=== PATIENT | male | born 1950 | race Caucasian/White ===

== ENCOUNTER 2018-06-21 18:22 | Inpatient (IN) | payer MEDICARE, BC ==
[2018-06-21] MEDS ORDERED: ASPIRIN 81 MG PO STA (18:42)
[2018-06-21] MEDS ORDERED: NITROGLYCERIN SL TABS 0.4 MG TAB SUBLINGUAL STA ×4 (18:42→20:24)
--- NOTE | 2018-06-21 18:47 | ED ---
General Adult HPI - General Chief complaint: Chest Pain Stated complaint: Chest pain Time Seen by Provider: 06/21/18 18:34 Source: patient, RN notes reviewed Mode of arrival: wheelchair Limitations: no limitations - History of Present Illness Initial comments: Patient is a pleasant 68-year-old male presenting to the emergency department with chest heaviness. Onset of symptoms was around 45 minutes ago. Patient was at rest. Patient earlier had done some painting and moving of boxes. Patient states discomfort started back and moved to his chest. Discomfort is described as a heaviness. There is some radiation towards left arm. No associated dyspnea or nausea. Patient was sweaty earlier. Discomfort is 8 or 9 /10. Discomfort in the back is slightly less. No history of similar symptoms previously. No leg pain or leg swelling. - Related Data Home Medications Medication Instructions Recorded Confirmed Curcumin 1 tab PO DAILY 06/21/18 06/21/18 Cyanocobalamin (Vitamin B-12) 1,000 mcg PO DAILY 06/21/18 06/21/18 [Vitamin B-12] Lisinopril [Zestril] 2.5 mg PO DAILY 06/21/18 06/21/18 Ubidecarenone [Co Q-10] 100 mg PO DAILY 06/21/18 06/21/18 Vitamin E 1,000 unit PO DAILY 06/21/18 06/21/18 metFORMIN HCL [Glucophage] 1,000 mg PO BID 06/21/18 06/21/18 Allergies Allergy/AdvReac Type Severity Reaction Status Date / Time glimepiride Allergy Unknown Verified 06/21/18 19:20 Review of Systems ROS Statement: Those systems with pertinent positive or pertinent negative responses have been documented in the HPI. ROS Other: All systems not noted in ROS Statement are negative. Constitutional: Denies: fever Eyes: Denies: eye pain ENT: Denies: ear pain Respiratory: Denies: cough, dyspnea Cardiovascular: Reports: chest pain. Denies: palpitations Endocrine: Denies: fatigue Gastrointestinal: Denies: abdominal pain, nausea Genitourinary: Denies: dysuria Musculoskeletal: Reports: back pain (Upper mid back) Skin: Denies: rash Neurological: Denies: weakness Past Medical History Past Medical History: Diabetes Mellitus History of Any Multi-Drug Resistant Organisms: None Reported Past Surgical History: No Surgical Hx Reported Past Psychological History: No Psychological Hx Reported Smoking Status: Never smoker Past Alcohol Use History: Daily Past Drug Use History: None Reported General Exam Limitations: no limitations General appearance: alert, in no apparent distress Head exam: Present: atraumatic Eye exam: Present: normal appearance, PERRL ENT exam: Present: normal oropharynx Neck exam: Present: normal inspection Respiratory exam: Present: normal lung sounds bilaterally. Absent: chest wall tenderness Cardiovascular Exam: Present: regular rate, normal rhythm, normal heart sounds Expanded Peripheral pulses: 2+: Radial (R), Radial (L), Dorsalis Pedis (R), Dorsalis Pedis (L) GI/Abdominal exam: Present: soft. Absent: tenderness Extremities exam: Present: normal inspection. Absent: pedal edema, calf tenderness Back exam: Present: normal inspection. Absent: tenderness Neurological exam: Present: alert. Absent: motor sensory deficit Psychiatric exam: Present: normal affect, normal mood Skin exam: Present: normal color Course Vital Signs 06/21/18 06/21/18 06/21/18 18:24 18:39 18:40 Temperature 97.5 F L Pulse Rate 70 71 68 Respiratory 18 12 10 L Rate Blood Pressure 127/77 122/81 O2 Sat by Pulse 100 97 Oximetry 06/21/18 06/21/18 06/21/18 19:00 19:20 19:40 Temperature Pulse Rate 74 63 Respiratory 12 4 L Rate Blood Pressure 122/81 122/81 122/81 O2 Sat by Pulse 94 L 93 L Oximetry 06/21/18 06/21/18 06/21/18 20:00 20:15 20:20 Temperature Pulse Rate 64 63 Respiratory 6 L 18 13 Rate Blood Pressure 122/81 108/68 108/68 O2 Sat by Pulse 98 98 98 Oximetry 06/21/18 06/21/18 06/21/18 20:35 20:40 21:00 Temperature Pulse Rate 74 69 65 Respiratory 18 14 16 Rate Blood Pressure 103/61 103/61 98/64 O2 Sat by Pulse 95 Oximetry 06/21/18 21:20 Temperature Pulse Rate 104 H Respiratory 16 Rate Blood Pressure 96/61 O2 Sat by Pulse 96 Oximetry EKG Findings - EKG Comments: EKG Findings:: Normal sinus rhythm 68. IA 172. QRS 92. QT 378. QTC 411. Normal axis. Normal QRS. No acute ST change. Medical Decision Making - Medical Decision Making Patient reevaluated and resting comfortably in bed. Discomfort is mild at this time. Patient and family updated on results and plan. Case was discussed in detail with Dr. Santillan, who will admit for hospital call. - Lab Data Result diagrams: 06/21/18 18:41 06/21/18 18:41 Lab Results 06/21/18 06/21/18 06/21/18 Range/Units 18:41 18:41 18:41 WBC 7.9 (3.8-10.6) k/uL RBC 5.21 (4.30-5.90) m/uL Hgb 15.5 (13.0-17.5) gm/dL Hct 46.7 (39.0-53.0) % MCV 89.8 (80.0-100.0) fL MCH 29.8 (25.0-35.0) pg MCHC 33.2 (31.0-37.0) g/dL RDW 12.7 (11.5-15.5) % Plt Count 308 (150-450) k/uL Neutrophils % 64 % Lymphocytes % 23 % Monocytes % 8 % Eosinophils % 2 % Basophils % 1 % Neutrophils # 5.0 (1.3-7.7) k/uL Lymphocytes # 1.8 (1.0-4.8) k/uL Monocytes # 0.6 (0-1.0) k/uL Eosinophils # 0.2 (0-0.7) k/uL Basophils # 0.1 (0-0.2) k/uL PT (9.0-12.0) sec INR (<1.2) APTT (22.0-30.0) sec Sodium 135 L (137-145) mmol/L Potassium 4.2 (3.5-5.1) mmol/L Chloride 106 (98-107) mmol/L Carbon Dioxide 21 L (22-30) mmol/L Anion Gap 8 mmol/L BUN 16 (9-20) mg/dL Creatinine 0.89 (0.66-1.25) mg/dL Est GFR (CKD-EPI)AfAm >90 (>60 ml/min/1.73 sqM) Est GFR (CKD-EPI)NonAf 88 (>60 ml/min/1.73 sqM) Glucose 145 H (74-99) mg/dL Calcium 9.9 (8.4-10.2) mg/dL Magnesium 1.8 (1.6-2.3) mg/dL Total Bilirubin 0.7 (0.2-1.3) mg/dL AST 25 (17-59) U/L ALT 32 (21-72) U/L Alkaline Phosphatase 58 (38-126) U/L Total Creatine Kinase 70 (55-170) U/L CK-MB (CK-2) 1.2 (0.0-2.4) ng/mL CK-MB (CK-2) Rel Index 1.7 Troponin I <0.012 (0.000-0.034) ng/mL Total Protein 7.1 (6.3-8.2) g/dL Albumin 4.1 (3.5-5.0) g/dL 06/21/18 Range/Units 18:41 WBC (3.8-10.6) k/uL RBC (4.30-5.90) m/uL Hgb (13.0-17.5) gm/dL Hct (39.0-53.0) % MCV (80.0-100.0) fL MCH (25.0-35.0) pg MCHC (31.0-37.0) g/dL RDW (11.5-15.5) % Plt Count (150-450) k/uL Neutrophils % % Lymphocytes % % Monocytes % % Eosinophils % % Basophils % % Neutrophils # (1.3-7.7) k/uL Lymphocytes # (1.0-4.8) k/uL Monocytes # (0-1.0) k/uL Eosinophils # (0-0.7) k/uL Basophils # (0-0.2) k/uL PT 10.7 (9.0-12.0) sec INR 1.1 (<1.2) APTT 22.6 (22.0-30.0) sec Sodium (137-145) mmol/L Potassium (3.5-5.1) mmol/L Chloride (98-107) mmol/L Carbon Dioxide (22-30) mmol/L Anion Gap mmol/L BUN (9-20) mg/dL Creatinine (0.66-1.25) mg/dL Est GFR (CKD-EPI)AfAm (>60 ml/min/1.73 sqM) Est GFR (CKD-EPI)NonAf (>60 ml/min/1.73 sqM) Glucose (74-99) mg/dL Calcium (8.4-10.2) mg/dL Magnesium (1.6-2.3) mg/dL Total Bilirubin (0.2-1.3) mg/dL AST (17-59) U/L ALT (21-72) U/L Alkaline Phosphatase (38-126) U/L Total Creatine Kinase (55-170) U/L CK-MB (CK-2) (0.0-2.4) ng/mL CK-MB (CK-2) Rel Index Troponin I (0.000-0.034) ng/mL Total Protein (6.3-8.2) g/dL Albumin (3.5-5.0) g/dL - Radiology Data Radiology results: report reviewed (Computed tomography scan of the chest shows no evidence of pulmonary embolism. There is borderline aneurysm at the aortic root, 4.1 cm.) Disposition Clinical Impression: Chest pain Disposition: ADMITTED IP TO THIS HOSP Is patient prescribed a controlled substance at d/c from ED?: No Referrals: Nonstaff,Physician [REFERRING] - 1-2 days Decision Time: 21:49
[2018-06-21 19:02] LABS: Basophils # (A) 0.1 k/uL (0-0.2); Basophils % (A) 1 %; Eosinophils # (A) 0.2 k/uL (0-0.7); Eosinophils % (A) 2 %; HCT 46.7 % (39.0-53.0); HGB 15.5 gm/dL (13.0-17.5); Lymphocytes # (A) 1.8 k/uL (1.0-4.8); Lymphocytes % (A) 23 %; MCH 29.8 pg (25.0-35.0); MCHC 33.2 g/dL (31.0-37.0); MCV 89.8 fL (80.0-100.0); Mean Platelet Volume 6.3; Monocytes # (A) 0.6 k/uL (0-1.0); Monocytes % (A) 8 %; Neutrophils % (A) 64 %; Platelet Count 308 k/uL (150-450); RBC 5.21 m/uL (4.30-5.90); RDW 12.7 % (11.5-15.5); WBC 7.9 k/uL (3.8-10.6)
[2018-06-21 19:09] LABS: INR 1.1 (<1.2); Partial Thromboplastin Time 22.6 sec (22.0-30.0); Prothrombin Time 10.7 sec (9.0-12.0)
[2018-06-21 19:16] LABS: ALT 32 U/L (21-72); AST 25 U/L (17-59); Albumin 4.1 g/dL (3.5-5.0); Alkaline Phosphatase 58 U/L (38-126); Anion Gap 8 mmol/L; Blood Urea Nitrogen 16 mg/dL (9-20); Calcium 9.9 mg/dL (8.4-10.2); Carbon Dioxide 21 mmol/L (22-30); Chloride 106 mmol/L (98-107); Glucose 145 mg/dL (74-99); Magnesium 1.8 mg/dL (1.6-2.3); Potassium 4.2 mmol/L (3.5-5.1); Sodium 135 mmol/L (137-145); Total Bilirubin 0.7 mg/dL (0.2-1.3); Total Protein 7.1 g/dL (6.3-8.2)
[2018-06-21 19:18] LABS: Creatine Kinase 70 U/L (55-170)
[2018-06-21 19:30] LABS: Creatine Kinase MB 1.2 ng/mL (0.0-2.4); Troponin I <0.012 ng/mL (0.000-0.034)
[2018-06-21] MEDS ORDERED: MORPHINE SULFATE 4 MG/ML SYRINGE IVP STA (20:25)
--- NOTE | 2018-06-21 20:26 | CT ---
EXAMINATION TYPE: CT angio chest DATE OF EXAM: 06/21/2018 COMPARISON: NONE HISTORY: Evaluate aorta, chest pain today CT DLP: 1338.4 mGycm. Automated Exposure Control for Dose Reduction was Utilized. CONTRAST: CTA scan of the thorax is performed without and with IV Contrast, patient injected with 100 mL of Iso mary 370, pulmonary embolism protocol. MIP Images are created on CT scanner and reviewed. FINDINGS: LUNGS: There is biapical pleural parenchymal scarring and mild paraseptal emphysematous change. Very mild focal pleural thickening is seen along the anterior lingula on image 200. No focal consolidation is seen. There is no pleural effusion or pneumothorax seen. The tracheobronchial tree is patent. MEDIASTINUM: There is a normal variant origin of the left vertebral artery directly from the aortic a rch. Aortic root is aneurysmal measuring 4.1 cm on coronal image 50. The ascending thoracic aorta how ever is within normal limits of size measuring 3.5 cm. Descending thoracic aorta is also within janeen l limits. There is satisfactory enhancement of the pulmonary artery and its branches, there is no CT evidence for pulmonary embolism. There are no greater than 1 cm hilar or mediastinal lymph nodes. No cardiomegaly or pericardial effusion is seen. OTHER: Large descending duodenal diverticulum is incidentally noted. Cholelithiasis is also seen. Low -attenuation of the liver suggests hepatic steatosis but is slightly limited and on the angiographic phase of contrast enhancement. Small hiatal hernia is present. Moderate multilevel degenerative gallegos es of the spine are seen as bridging anterior osteophytes. Diffuse idiopathic skeletal hyperostosis s hould also be considered. IMPRESSION: 1. No evidence of thoracic aortic dissection nor pulmonary embolism. 2. Mild aortic root aneurysm measuring 4.1 cm. 3. Small hiatal hernia. 4. Mild paraseptal emphysema.
[2018-06-21] MEDS ORDERED: CYCLOBENZAPRINE 10 MG TAB PO STA (21:44)
[2018-06-21] MEDS ORDERED: NITROGLYCERIN SL TABS 0.4 MG TAB SUBLINGUAL PRN (21:49)
[2018-06-22 01:34] VITALS: BMI 27.2
[2018-06-22] MEDS: NITROGLYCERIN OINT 1 INCH/GM PACKET TOPICAL SCH ×2 (02:09→04:35)
[2018-06-22 02:52] LABS: Creatine Kinase MB 1.7 ng/mL (0.0-2.4)
[2018-06-22 02:59] LABS: Troponin I 0.181 ng/mL (0.000-0.034)
[2018-06-22] MEDS ORDERED: HEPARIN SODIUM,PORCINE 5,000 UNIT/ML 1 ML VIAL IV PRN (04:21)
[2018-06-22] MEDS ORDERED: HEPARIN SODIUM,PORCINE 5,000 UNIT/ML 1 ML VIAL IV ONE (04:21)
[2018-06-22] MEDS ORDERED: HEPARIN SOD,PORK IN 0.45% NACL 25,000 UNIT in 0.45% NACL 1 500ML.BAG IV SCH (04:30)
[2018-06-22] MEDS: METOPROLOL TARTRATE 25 MG TAB PO SCH ×2 (04:35→20:06)
[2018-06-22] MEDS ORDERED: SODIUM CHLORIDE 0.9% 1,000 ML in EMPTY BAG 1 BAG IV ONE (05:54)
[2018-06-22] MEDS ORDERED: ALPRAZolam 0.25 MG TAB PO PRN (05:54)
[2018-06-22] MEDS ORDERED: ALPRAZolam 0.5 MG TAB PO PRN (05:54)
--- NOTE | 2018-06-22 06:02 | P.CRDCN ---
History of Present Illness Consult date: 06/22/18 History of present illness: This is a 68-year-old gentleman with history of diabetes, [id number] , and hypercholesterolemia who started having chest pain while doing painting around the house. The pain started in the back and immediately radiated to the chest with some radiation to the left arm. The pain was intense and was 8 on a scale of 1-10. Patient was seen in the emergency room and was treated with subcu lingual nitro and also morphine with relief of pain. His first EKG she showed normal findings and first troponin was normal. Computed tomography scan of the chest showed mild aortic aneurysm involving the Route without evidence of dissection. His second troponin is elevated. Patient is still having intermittent mild chest discomfort. Repeat EKG did not reveal any acute changes. Patient is advised to have a cardiac catheterization for definitive diagnosis and was explained the risks and benefits of the procedure which he fully understood and accepted. We'll going to continue him on nitrates, beta blockers, aspirin and Plavix along with lipid-lowering agent. He is scheduled to have an echocardiogram today. Cardiac catheterization will be done today. Review of Systems REVIEW OF SYSTEMS: CONSTITUTIONAL:. Patient is doing well. No complaints of fever or chills EYES: Denies diplopia, blurring of vision EARS, NOSE, MOUTH, THROAT: Denies headaches, denies sore throat. CARDIOVASCULAR: As per HPI RESPIRATORY: Denies shortness of breath, denies cough. GASTROINTESTINAL: Denies change in appetite, denies abdominal pain, denies diarrhea GENITOURINARY: Denies hematuria, denies infections. MUSKULOSKELETAL: Denies pain, denies swelling. Denies any cramps or claudication INTEGUMENTARY: Denies rash, denies eczema. NEUROLOGICAL: Denies focal weakness, or visual disturbance. Denies any dizziness or syncope PSYCHIATRIC: Denies anxiety, denies depression. HEMATOLOGIC/LYMPHATIC: Denies any bleeding, denies enlarged lymph nodes. Past Medical History Past Medical History: Diabetes Mellitus, GERD/Reflux, Sleep Apnea/CPAP/BIPAP Additional Past Medical History / Comment(s): no cpap, neuropathy History of Any Multi-Drug Resistant Organisms: None Reported Past Surgical History: No Surgical Hx Reported, Hernia Repair Additional Past Surgical History / Comment(s): 3 hernia repair - marshall inguinal, umbilical hernia repair Past Anesthesia/Blood Transfusion Reactions: No Reported Reaction Past Psychological History: No Psychological Hx Reported Smoking Status: Former smoker Past Alcohol Use History: Daily Past Drug Use History: None Reported - Past Family History Mother Family Medical History: CVA/TIA Additional Family Medical History / Comment(s): passed at 76 Father Additional Family Medical History / Comment(s): pt states healthy Medications and Allergies Home Medications Medication Instructions Recorded Confirmed Type Curcumin 1 tab PO DAILY 06/21/18 06/21/18 History Cyanocobalamin (Vitamin B-12) 1,000 mcg PO DAILY 06/21/18 06/21/18 History [Vitamin B-12] Lisinopril [Zestril] 2.5 mg PO DAILY 06/21/18 06/21/18 History Ubidecarenone [Co Q-10] 100 mg PO DAILY 06/21/18 06/21/18 History Vitamin E 1,000 unit PO DAILY 06/21/18 06/21/18 History metFORMIN HCL [Glucophage] 1,000 mg PO BID 06/21/18 06/21/18 History Allergies Allergy/AdvReac Type Severity Reaction Status Date / Time glimepiride Allergy Unknown Verified 06/21/18 19:20 Physical Exam Vitals: Vital Signs Temp Pulse Pulse Resp BP BP Pulse Ox 06/22/18 04:00 98.5 F 55 L 16 110/71 97 06/22/18 01:05 98.2 F 63 16 121/71 97 06/22/18 00:45 67 16 101/69 97 06/22/18 00:15 65 12 103/67 94 L 06/22/18 00:00 16 06/21/18 23:57 16 100/66 98 06/21/18 23:45 68 12 100/66 97 06/21/18 23:15 67 21 105/72 94 L 06/21/18 22:45 67 14 110/71 90 L 06/21/18 22:30 66 12 125/73 93 L 06/21/18 22:15 63 6 L 125/73 96 06/21/18 22:00 64 15 105/67 06/21/18 21:45 84 11 L 105/67 95 06/21/18 21:20 104 H 16 96/61 96 06/21/18 21:00 65 16 98/64 06/21/18 20:40 69 14 103/61 06/21/18 20:35 74 18 103/61 95 06/21/18 20:20 63 13 108/68 98 06/21/18 20:15 64 18 108/68 98 06/21/18 20:00 6 L 122/81 98 06/21/18 19:40 122/81 06/21/18 19:20 63 4 L 122/81 93 L 06/21/18 19:00 74 12 122/81 94 L 06/21/18 18:40 68 10 L 122/81 97 06/21/18 18:39 71 12 06/21/18 18:24 97.5 F L 70 18 127/77 100 Intake and Output 06/21/18 06/21/18 06/22/18 14:59 22:59 06:59 Other: # Voids 2 Weight 86.183 kg 86.183 kg GENERAL EXAM: Patient is alert and oriented and doesn't appear to be in any acute distress HEENT: Normocephalic. Normal reaction of pupils, equal size, normal range of extraocular motion. No erythema or exudates in the throat. NECK: No masses, no nuchal rigidity. CHEST: No chest wall deformity. LUNGS: Equal air entry with no crackles or wheeze. HEART: S1 and S2 normal with no audible mumurs or gallops. Regular rhythm, femorals equal on both sides.. ABDOMEN: No hepatosplenomegaly, normal bowel sounds, no guarding or rigidity. SKIN: No rashes CENTRAL NERVOUS SYSTEM: No focal deficits. EXTREMITIES: No cyanosis, clubbing or edema. Results 06/21/18 18:41 06/21/18 18:41 Cardiac Enzymes 06/21/18 06/21/18 06/22/18 Range/Units 18:41 18:41 01:19 AST 25 (17-59) U/L CK-MB (CK-2) 1.2 1.7 (0.0-2.4) ng/mL Troponin I <0.012 0.181 H* (0.000-0.034) ng/mL Coagulation 06/21/18 Range/Units 18:41 PT 10.7 (9.0-12.0) sec APTT 22.6 (22.0-30.0) sec CBC 06/21/18 Range/Units 18:41 WBC 7.9 (3.8-10.6) k/uL RBC 5.21 (4.30-5.90) m/uL Hgb 15.5 (13.0-17.5) gm/dL Hct 46.7 (39.0-53.0) % Plt Count 308 (150-450) k/uL Comprehensive Metabolic Panel 06/21/18 Range/Units 18:41 Sodium 135 L (137-145) mmol/L Potassium 4.2 (3.5-5.1) mmol/L Chloride 106 (98-107) mmol/L Carbon Dioxide 21 L (22-30) mmol/L BUN 16 (9-20) mg/dL Creatinine 0.89 (0.66-1.25) mg/dL Glucose 145 H (74-99) mg/dL Calcium 9.9 (8.4-10.2) mg/dL AST 25 (17-59) U/L ALT 32 (21-72) U/L Alkaline Phosphatase 58 (38-126) U/L Total Protein 7.1 (6.3-8.2) g/dL Albumin 4.1 (3.5-5.0) g/dL Current Medications Generic Name Dose Route Start Last Admin Trade Name Freq PRN Reason Stop Dose Admin Aspirin 325 mg 06/22/18 09:00 Aspirin PO DAILY [facility] Atorvastatin Calcium 80 mg 06/22/18 09:00 Lipitor PO DAILY [facility] Clopidogrel Bisulfate 75 mg 06/22/18 09:00 Plavix PO DAILY [facility] Heparin Sodium (Porcine) 0 unit 06/22/18 04:21 Heparin IV PER PROTOCOL PRN Low PTT Protocol Heparin Sodium/Sodium Chloride 500 mls @ 20 mls/hr 06/22/18 04:30 06/22/18 04 :47 25,000 unit/ Sodium Chloride IV 20 ml/hr .Q24H PARISH 20 mls/hr Administration Protocol Metoprolol Tartrate 25 mg 06/22/18 09:00 06/22/18 04:35 Lopressor PO 25 mg BID [facility] Administration Nitroglycerin 1 inch 06/22/18 00:00 06/22/18 04:35 Nitro-Bid Oint TOPICAL 1 inch Q6HR [facility] Administration Nitroglycerin 0.4 mg 06/21/18 21:49 Nitrostat SUBLINGUAL Q5M PRN Chest Pain Sodium Chloride 10 ml 06/22/18 09:00 Saline Flush IV BID [facility] Intake and Output 06/21/18 06/21/18 06/22/18 14:59 22:59 06:59 Other: # Voids 2 Weight 86.183 kg 86.183 kg Patient Weight 06/22/18 06:59 Weight 86.183 kg 06/21/18 18:41 06/21/18 18:41 EKG Interpretations (text) Sinus rhythm without acute changes Assessment and Plan (1) Non-STEMI (non-ST elevated myocardial infarction) Current Visit: Yes Status: Acute Code(s): I21.4 - NON-ST ELEVATION (NSTEMI) MYOCARDIAL INFARCTION SNOMED Code(s): 321889159 (2) Non-insulin dependent type 2 diabetes mellitus Current Visit: Yes Status: Acute Code(s): E11.9 - TYPE 2 DIABETES MELLITUS WITHOUT COMPLICATIONS SNOMED Code(s): 18165756 (3) Hypercholesterolemia Current Visit: Yes Status: Acute Code(s): E78.00 - PURE HYPERCHOLESTEROLEMIA , UNSPECIFIED SNOMED Code(s): 82264684 Plan: Continue with current management with IV heparin, nitrates, beta blockers and lipid-lowering agent along with aspirin and Plavix. Echocardiogram. We will proceed with cardiac catheterization. Further recommendations depend upon the findings
[2018-06-22] MEDS: ATORVASTATIN 80 MG TAB PO SCH (06:25)
[2018-06-22 07:17] LABS: Glucose,Whole Blood 132 mg/dL (75-99)
[2018-06-22] MEDS ORDERED: LIDOCAINE 1% INJ 10MG/ML (20 ML MDV) ONE (08:03)
[2018-06-22] MEDS ORDERED: IV FLUID CONTINUATION 800 ML IV ONE (08:12)
[2018-06-22 08:20] LABS: Creatine Kinase MB 3.3 ng/mL (0.0-2.4)
[2018-06-22] MEDS ORDERED: MIDAZOLAM 2 MG/2 ML VIAL ONE (08:20)
[2018-06-22] MEDS ORDERED: MIDAZOLAM 2 MG/2 ML VIAL IV ONE (08:24)
[2018-06-22] MEDS ORDERED: fentaNYL (PF) 50 MCG/ML 2 ML AMP ONE (08:26)
[2018-06-22] MEDS ORDERED: fentaNYL (PF) 50 MCG/ML 2 ML AMP IV ONE (08:27)
[2018-06-22] MEDS ORDERED: LIDOCAINE 1% INJ 10MG/ML (20 ML MDV) SQ ONE (08:28)
[2018-06-22 08:33] LABS: Troponin I 0.692 ng/mL (0.000-0.034)
[2018-06-22 08:34] LABS: Cholesterol 201 mg/dL (<200); HDL Cholesterol 54 mg/dL (40-60); LDL Cholesterol,Calculated 135 mg/dL (0-99); Triglycerides 59 mg/dL (<150)
[2018-06-22] MEDS ORDERED: BIVALIRUDIN 250 MG in SODIUM CHLORIDE 0.9% 50 ML IV ONE (09:00)
[2018-06-22] MEDS ORDERED: CLOPIDOGREL 75 MG TAB PO SCH (09:00)
[2018-06-22] MEDS ORDERED: BIVALIRUDIN BOLUS 250 MG/50 ML IV ONE (09:00)
[2018-06-22] MEDS ORDERED: ASPIRIN 325 MG TAB PO SCH (09:00)
[2018-06-22] MEDS ORDERED: TICAGRELOR 90 MG TAB ONE (09:01)
[2018-06-22] MEDS ORDERED: TICAGRELOR 90 MG TAB PO ONE (09:07)
[2018-06-22] MEDS ORDERED: IOPAMIDOL-370 125ML BTL INJ ONE (09:10)
[2018-06-22] MEDS ORDERED: IOPAMIDOL-370 100ML BTL INJ ONE (09:11)
--- NOTE | 2018-06-22 09:12 | P.CARDCATH ---
Date of Procedure: 06/22/18 Preoperative Diagnosis: Non-STEMI Postoperative Diagnosis: Critical lesion involving the OM branch of the circumflex, moderate disease in the distal RCA involving the PLV Procedure(s) Performed: Left heart catheterization with left ventriculography Description of Procedure: HISTORY: This is a 68-year-old gentleman with history of diabetes and mild hypercholesterolemia who was admitted to the hospital with chest pain and positive troponins. EKG did not reveal any significant changes. Because of positive troponins and chest pain suggestive of non-STEMI, patient is advised to have cardiac catheterization. CONSENT:I have discussed the risks, benefits and alternative therapies for the above-mentioned procedure and for both sedation/analgesia as well as necessary blood product administration, if indicated, as they pertain to this patient. The patient has indicated understanding and acceptance of the risks and procedures discussed. PROCEDURE: Patient was brought to the lab in a fasting state. Patient was given some IV sedation. The right groin is infiltrated with lidocaine and right femoral artery was entered using Seldinger technique. A 6-Palauan catheter was left in place and selective coronary arteriography and left ventriculography was performed. Patient tolerated the procedure well. Patient went on to have stent placement by Dr. Heller. No immediate complications were noted. Conscious Sedation: Versed 1mg Fentanyl 25 g Duration 22minutes HEMODYNAMICS: [] SELECTIVE CORONARY ARTERIOGRAPHY: LEFT MAIN: Normal length without any stenosis THE LEFT ANTERIOR DESCENDING CORONARY ARTERY:. Good caliber vessel giving rise to small septal and diagonal branches. No significant obstructive disease noted in the LAD and its branches THE LEFT CIRCUMFLEX AND IS CORONARY ARTERY:. This is a good caliber vessel giving rise good-sized OM branch. The OM branch has an area of about 40-50% stenosis followed by a significant stenosis which is seen only in one view. There is a small branch coming off that area THE RIGHT CORONARY ARTERY:. Good caliber vessel and dominant, giving rise to good-sized PDA and PLV. The PLV branch has about 50% stenosis involving the proximal portion LEFT VENTRICULOGRAPHY:. This revealed normal size cardiac silhouette with good systolic function. There is mild mitral regurgitation which is probably induced by catheter FINAL IMPRESSION: Critical lesion involving the OM branch and intermediate disease involving the PLV branch of the right with a mild plaque in the proximal RCA PLAN: Stent placement of the OM branch PROGNOSIS: Good
[2018-06-22] MEDS ORDERED: IOPAMIDOL-370 50ML BTL INJ ONE (09:13)
[2018-06-22] MEDS ORDERED: NITROGLYCERIN SL TABS 0.4 MG TAB SUBLINGUAL PRN (09:20)
[2018-06-22] MEDS ORDERED: ZOLPIDEM 5 MG TAB PO PRN (09:20)
[2018-06-22] MEDS ORDERED: ATROPINE SULFATE 0.1 MG/ML 10ML SYRINGE IV PRN (09:20)
[2018-06-22] MEDS ORDERED: MAG HYDROX/AL HYDROX/SIMETH 30 ML CUP PO PRN (09:20)
[2018-06-22] MEDS ORDERED: RX INFO: IV CONTRAST WAS GIVEN 1 EACH MISC MISCELLANE PRN (09:20)
[2018-06-22] MEDS ORDERED: SODIUM CHLORIDE 0.9% 1,000 ML IV SCH (09:30)
[2018-06-22 11:27] LABS: Glucose,Whole Blood 165 mg/dL (75-99)
--- NOTE | 2018-06-22 14:39 | HP ---
HISTORY AND PHYSICAL CHIEF COMPLAINT: A 68-year-old white male with history diabetes mellitus, hypercholesterolemia, came in with sharp chest pain radiating into his back. He is doing a lot of heaving lifting at home on his pole barn. Cardiac catheterization showed a stent in the RCA today. Medications discussed with the patient and long-term care and medications were discussed. 14 POINT REVIEW OF SYSTEMS: Negative except for as mentioned in HPI. PAST MEDICAL HISTORY: Diabetes mellitus, sleep apnea, GERD, no CPAP. He has neuropathy, he has a hernia repair, bilateral inguinal, umbilical hernia repair. SOCIAL HISTORY: Former smoker. Daily alcohol. Mother with CVA, TIA. Father is healthy. HOME MEDICATIONS: He takes Zestril 2.5 daily for kidney protection for diabetes. Metformin is 1000 b.i.d. and takes a bunch of vitamins. Temp 98.5, pulse 60s to 70s, respiratory 16 to 18, blood pressure 100/60s, O2 is 94% to 97% on room air. CARDIOVASCULAR: S1, S2. LUNGS: Clear. GI: Soft, nontender. HEMATOLOGY: Negative Homans. PSYCH: Fair mood and affect. MUSCULOSKELETAL: There is some tenderness to palpation around thoracic spinal muscles. SKIN: No rash, excoriation, bruises. Cranial nerves are intact. Sodium is 135, BUN is 16, creatinine is 0.89. White count is 7.9, hemoglobin 15.5. ASSESSMENT: 1. Non-STEMI. 2. [id number]-mocdshpyk diabetes mellitus. 3. Hypercholesterolemia. 4. Stents placed, medications were reviewed for him for long-term care. Follow up in the next 24-48 hours for discharge in the next 1-2 days, depending on Cardiology clearance. MMODL / IJN: [id number] /
--- NOTE | 2018-06-22 16:09 | PTCA ---
PERCUTANEOUSTRANS CORORONARY ANGIOGRAPHY Mr. Forbes is a 68-year-old male with known history of diabetes mellitus who presented with symptoms of chest discomfort and had mild elevation of troponin without any EKG changes. He underwent cardiac catheterization by Dr. Lott and was found to have significant obstructive disease involving the first OM branch. In view of that, recommendation was made regarding angioplasty and stenting. The procedure, its risks and complications were discussed with the patient, who was in full understanding and agreement. PROCEDURE: A 6-Chinese FR4 guiding catheter was introduced into the system. After cannulating the left main, a 0.014 balanced medium-weight J-wire was advanced across the lesion and positioned distally. Then a 2.5 x 12 mm Xience CR stent was deployed and post dilated at 16 atmospheres. After the last inflation, after appropriate wait, the balloon and the guidewire were withdrawn back into the guiding catheter. Images were obtained and repeated. Those images revealed stable successful stenting. At that point, the guiding catheter, the balloon and the guidewire were removed. The sheath was removed. Hemostasis was obtained with deployment of an Angio-Seal. There were no immediate complications. Patient was returned to his room in stable condition. Of note, patient received Angiomax per protocol as well as oral loading dose of Brilinta. RESULT: Successful stenting of the first obtuse marginal branch with reduction of stenosis from 95% to 0%. RECOMMENDATIONS: Patient will be continued on aspirin, Brilinta, beta roland, ANITHA inhibitor and statin. The importance of dual antiplatelet treatment was discussed with the patient and his family, who are in full understanding and agreement. Duration of procedure 17 minutes. MMODL / IJN: [id number] /
[2018-06-22 16:35] LABS: Glucose,Whole Blood 195 mg/dL (75-99)
[2018-06-22 20:31] LABS: Glucose,Whole Blood 126 mg/dL (75-99)
[2018-06-22] MEDS ORDERED: ATORVASTATIN 80 MG TAB PO SCH (21:00)
[2018-06-22 22:31] VITALS: RESP 16
[2018-06-23 04:35] VITALS: PULSE 62
[2018-06-23 06:02] LABS: Glucose,Whole Blood 103 mg/dL (75-99)
[2018-06-23 07:27] LABS: Basophils % (A) 1 %; Eosinophils # (A) 0.2 k/uL (0-0.7); Eosinophils % (A) 4 %; HCT 43.8 % (39.0-53.0); HGB 14.5 gm/dL (13.0-17.5); Lymphocytes # (A) 1.4 k/uL (1.0-4.8); Lymphocytes % (A) 25 %; MCH 30.4 pg (25.0-35.0); MCHC 33.1 g/dL (31.0-37.0); MCV 91.8 fL (80.0-100.0); Monocytes # (A) 0.4 k/uL (0-1.0); Monocytes % (A) 7 %; Neutrophils # (A) 3.3 k/uL (1.3-7.7); Neutrophils % (A) 60 %; Platelet Count 248 k/uL (150-450); RBC 4.77 m/uL (4.30-5.90); RDW 12.9 % (11.5-15.5); WBC 5.5 k/uL (3.8-10.6)
[2018-06-23] MEDS: ATORVASTATIN 80 MG TAB PO SCH (07:37)
[2018-06-23] MEDS: METOPROLOL TARTRATE 25 MG TAB PO SCH (07:37)
[2018-06-23 07:41] LABS: Anion Gap 5 mmol/L; Blood Urea Nitrogen 12 mg/dL (9-20); Calcium 8.9 mg/dL (8.4-10.2); Carbon Dioxide 24 mmol/L (22-30); Chloride 108 mmol/L (98-107); Glucose 97 mg/dL (74-99); Potassium 4.6 mmol/L (3.5-5.1); Sodium 137 mmol/L (137-145)
[2018-06-23 07:43] VITALS: BP 114/64; TEMP 97.3
[2018-06-23] MEDS ORDERED: LISINOPRIL 2.5 MG TAB PO SCH (09:00)
[2018-06-23] MEDS ORDERED: ASPIRIN 81 MG PO SCH (09:00)
[2018-06-23] MEDS ORDERED: TICAGRELOR 90 MG TAB PO SCH (09:00)
--- NOTE | 2018-06-23 10:04 | ECHOF ---
Referral Reason:Chest pain and cardiomyopathy MEASUREMENTS -------- HEIGHT: 177.8 cm WEIGHT: 86.2 kg BP: 110/71 RVIDd: 2.6 cm (< 3.3) IVSd: 1.0 cm (0.6 - 1.1) LVIDd: 4.6 cm (3.9 - 5.3) LVPWd: 1.1 cm (0.6 - 1.1) IVSs: 1.4 cm LVIDs: 2.3 cm LVPWs: 1.3 cm LAESV Index (A-L): 19.95 ml/m Ao Diam: 4.2 cm (2.0 - 3.7) AV Cusp: 2.3 cm (1.5 - 2.6) LA Diam: 2.2 cm (2.7 - 3.8) EPSS: 0.5 cm MV E Atul: 0.62 m/s MV DecT: 337 ms MV A Atul: 0.59 m/s MV E/A Ratio: 1.06 AV maxP.70 mmHg AV meanP.92 mmHg MV EF SLOPE: 175.17 mm/s (70 - 150) MV EXCURSION: 2.02 cm (> 18.000) FINDINGS -------- Sinus rhythm. This was a technically difficult study with suboptimal views. The left ventricular size is normal. Left ventricular wall thickness is normal. Overall left vent ricular systolic function is normal with, an EF between 55 - 60 %. The RV was not well visualized. Normal LA size by volume 22+/-6 ml/m2. The right atrium is normal in size. 3ml of Lumason was utilized for enhancement of images. Aortic valve is trileaflet and is mildly thickened. There is no evidence of aortic regurgitation. There is no evidence of aortic stenosis. Mild mitral annular calcification present. There is trace to mild mitral regurgitation. Trace tricuspid regurgitation present. Right ventricular systolic pressure is normal at < 35 mmHg. There is no evidence of pulmonary hypertension. The pulmonic valve was not well visualized. The aortic root is mildy dilated, up to 3.9 cm at the level of the annulus. IVC Not well visulized. There is no pericardial effusion. CONCLUSIONS -------- 1. Sinus rhythm. 2. This was a technically difficult study with suboptimal views. 3. The left ventricular size is normal. 4. Left ventricular wall thickness is normal. 5. Overall left ventricular systolic function is normal with, an EF between 55 - 60 %. 6. The RV was not well visualized. 7. Normal LA size by volume 22+/-6 ml/m2. 8. 3ml of Lumason was utilized for enhancement of images. 9. Aortic valve is trileaflet and is mildly thickened. 10. Mild mitral annular calcification present. 11. There is trace to mild mitral regurgitation. 12. Trace tricuspid regurgitation present. 13. Right ventricular systolic pressure is normal at < 35 mmHg. 14. There is no evidence of pulmonary hypertension. 15. The pulmonic valve was not well visualized. 16. The aortic root is mildy dilated, up to 3.9 cm at the level of the annulus. 17. IVC Not well visulized. 18. There is no pericardial effusion. SPRAY DYER: Alessandro Lara RDCS
--- NOTE | 2018-06-23 13:18 | P.PN ---
Subjective Progress Note Date: 06/23/18 This is a 68-year-old gentleman with history of diabetes, [id number] , and hypercholesterolemia who started having chest pain while doing painting around the house. The pain started in the back and immediately radiated to the chest with some radiation to the left arm. The pain was intense and was 8 on a scale of 1-10. Patient was seen in the emergency room and was treated with subcu lingual nitro and also morphine with relief of pain. His first EKG she showed normal findings and first troponin was normal. Computed tomography scan of the chest showed mild aortic aneurysm involving the Route without evidence of dissection. His second troponin is elevated. Patient is still having intermittent mild chest discomfort. Repeat EKG did not reveal any acute changes. Patient is advised to have a cardiac catheterization for definitive diagnosis and was explained the risks and benefits of the procedure which he fully understood and accepted. Subsequent to the cardiac catheterization patient underwent angioplasty and stenting of the first obtuse marginal branch. He was seen and examined this morning, denied any chest pain or difficulty in breathing. He's been up ambulating in the hallway without any difficulty. Hemodynamically stable. EKG shows normal sinus rhythm with no changes from post -PCI. Objective - Vital Signs Vital signs: Vital Signs Temp 97.3 F L 06/23/18 07:41 Pulse 62 06/23/18 07:41 Resp 16 06/23/18 07:41 BP 114/64 06/23/18 07:41 Pulse Ox 94 L 06/23/18 07:41 Intake & Output 06/22/18 06/23/18 06/23/18 18:59 06:59 18:59 Intake Total 859.52 500 240 Balance 859.52 500 240 Weight 86.183 kg Intake: IV 219.52 Intake, IV Titration 400 500 Amount Sodium Chloride 0.9% 1, 400 500 000 ml @ 100 mls/hr IV . Q10H [facility] Rx#:[id number] Oral 240 240 Other: # Voids 250 1 1 - Exam GENERAL EXAM: Patient is alert and oriented and doesn't appear to be in any acute distress HEENT: Normocephalic. Normal reaction of pupils, equal size, normal range of extraocular motion. No erythema or exudates in the throat. NECK: No masses, no nuchal rigidity. CHEST: No chest wall deformity. LUNGS: Equal air entry with no crackles or wheeze. HEART: S1 and S2 normal with no audible mumurs or gallops. Regular rhythm, femorals equal on both sides.. ABDOMEN: No hepatosplenomegaly, normal bowel sounds, no guarding or rigidity. SKIN: No rashes CENTRAL NERVOUS SYSTEM: No focal deficits. EXTREMITIES: No cyanosis, clubbing or edema. Right groin soft, no evidence of any hematoma. - Labs CBC & Chem 7: 06/23/18 06:16 06/23/18 06:16 Labs: Abnormal Lab Results - Last 24 Hours (Table) 06/22/18 06/22/18 06/23/18 Range/Units 16:33 20:24 06:00 Chloride (98-107) mmol/L POC Glucose (mg/dL) 195 H 126 H 103 H (75-99) mg/dL 06/23/18 Range/Units 06:16 Chloride 108 H (98-107) mmol/L POC Glucose (mg/dL) (75-99) mg/dL Assessment and Plan Plan: Assessment and plan #1 status post stent placement of the first obtuse marginal branch #2 diabetes #3 hyperlipidemia Plan Patient will be discharged home today. We will make a follow-up appointment to see Dr. Lott in the office post discharge. He has been educated regarding his medication, diet, activity, and care of groin. DNP note has been reviewed, I agree with a documented findings and plan of care. Patient was seen and examined.
== END 2018-06-23 10:55 | disposition home or self-care (01) | DRG 247 ==
LOC: EC 18:22 → 1SOBS 21:49 → 3SCARD 06-22 10:07 → OBSVTOIN 06-22 13:53
PROVIDERS: ADMIT Family Medicine; ATTEND Family Medicine
PROC: B2111ZZ Fluoroscopy of Multiple Coronary Arteries using Low Osmolar Contrast (ICD-10-PCS; 2018-06-22)
PROC: B2151ZZ Fluoroscopy of Left Heart using Low Osmolar Contrast (ICD-10-PCS; 2018-06-22)
PROC: 027034Z Dilation of Coronary Artery, One Artery with Drug-eluting Intraluminal Device, Percutaneous Approach (ICD-10-PCS; principal; 2018-06-22 08:12)
PROC: 4A023N7 Measurement of Cardiac Sampling and Pressure, Left Heart, Percutaneous Approach (ICD-10-PCS; 2018-06-22 08:12)
DX: I21.4 Non-ST elevation (NSTEMI) myocardial infarction (principal); Q25.43 Congenital aneurysm of aorta; E78.00 Pure hypercholesterolemia, unspecified; E78.5 Hyperlipidemia, unspecified; G47.30 Sleep apnea, unspecified; K21.9 Gastro-esophageal reflux disease without esophagitis; E11.40 Type 2 diabetes mellitus with diabetic neuropathy, unspecified; I25.10 Atherosclerotic heart disease of native coronary artery without angina pectoris; Z79.84 Long term (current) use of oral hypoglycemic drugs; Z79.899 Other long term (current) drug therapy; Z87.891 Personal history of nicotine dependence; Z88.8 Allergy status to other drugs, medicaments and biological substances; Z82.3 Family history of stroke
CPT/HCPCS: 36415; 71275; 80048; 80053; 80061; 82550; 82553; 83735; 84484; 85025; 85347; 85610; 85730; 93005; 93306; 93458; 96374; 99285; C1874

== ENCOUNTER 2019-03-28 12:44 | Observation (INO) | payer MEDICARE, BC ==
--- NOTE | 2019-03-28 13:19 | ED ---
Chest Pain HPI - General Chief Complaint: Chest Pain Stated Complaint: CHEST PAIN Time Seen by Provider: 03/28/19 12:49 Source: patient, RN notes reviewed, old records reviewed Mode of arrival: ambulatory Limitations: no limitations - History of Present Illness Initial Comments: This is a 69-year-old male the ER for evaluation. Patient resents today for evaluation heaviness on his anterior chest. History of stent placement about a year ago. Patient has been taking all medications as prescribed. No prior recent evaluation for chest pain or shortness of breath, patient was diaphoretic will doing activity today began to have significant anterior chest pain he took a nitro which did alleviate pain. Patient has not had to take nitro since he had his stents placed. MD Complaint: chest pain -: hour(s) Onset: during exertion Pain Location: substernal, left chest Pain Radiation: none Severity: moderate Severity scale (1-10): 6 Quality: heaviness Consistency: constant Improves With: nitroglycerin Worsens With: exertion Anginal Symptoms: nausea, diaphoresis, dyspnea Other Symptoms: palpitations - Related Data Home Medications Medication Instructions Recorded Confirmed Curcumin 1 tab PO DAILY 06/21/18 03/28/19 Ubidecarenone [Co Q-10] 100 mg PO DAILY 06/21/18 03/28/19 Vitamin E 1,000 unit PO DAILY 06/21/18 03/28/19 Ashwagandha 1 tab PO DAILY 03/28/19 03/28/19 Atorvastatin [Lipitor] 40 mg PO HS 03/28/19 03/28/19 Cholecalciferol (Vitamin D3) 2,000 unit PO DAILY 03/28/19 03/28/19 [Vitamin D3] Empagliflozin [Jardiance] 10 mg PO DAILY 03/28/19 03/28/19 Empagliflozin [Jardiance] 10 mg PO DAILY 03/28/19 03/28/19 Kelp 1 tab PO DAILY 03/28/19 03/28/19 Magnesium Oxide 400 mg PO DAILY 03/28/19 03/28/19 Metoprolol Tartrate [Lopressor] 12.5 mg PO BID 03/28/19 03/28/19 Vitamin B Complex 1 cap PO DAILY 03/28/19 03/28/19 Vitamin K-2 100mg 1 tab PO DAILY 03/28/19 03/28/19 Previous Rx's Medication Instructions Recorded Aspirin 81 mg PO DAILY chew 06/23/18 Lisinopril [Zestril] 2.5 mg PO DAILY tab 06/23/18 Nitroglycerin Sl Tabs [Nitrostat] 0.4 mg SUBLINGUAL Q5M PRN tab 06/23/18 Ticagrelor [Brilinta] 90 mg PO BID tab 06/23/18 Allergies Allergy/AdvReac Type Severity Reaction Status Date / Time glimepiride Allergy Unknown Verified 03/28/19 13:23 Review of Systems ROS Statement: Those systems with pertinent positive or pertinent negative responses have been documented in the HPI. ROS Other: All systems not noted in ROS Statement are negative. EKG Findings - EKG Comments: EKG Findings:: EKG shows sinus rhythm rate of 63, OH 164, QRS 80, QTC 380. Past Medical History Past Medical History: Diabetes Mellitus, GERD/Reflux, Myocardial Infarction ([place]), Sleep Apnea/CPAP/BIPAP Additional Past Medical History / Comment(s): no cpap, neuropathy History of Any Multi-Drug Resistant Organisms: None Reported Past Surgical History: No Surgical Hx Reported, Heart Catheterization With Stent, Hernia Repair Additional Past Surgical History / Comment(s): 3 hernia repair - marshall inguinal, umbilical hernia repair Past Anesthesia/Blood Transfusion Reactions: No Reported Reaction Past Psychological History: No Psychological Hx Reported Smoking Status: Former smoker Past Alcohol Use History: Daily Past Drug Use History: None Reported - Past Family History Mother Family Medical History: CVA/TIA Additional Family Medical History / Comment(s): passed at 76 Father Additional Family Medical History / Comment(s): pt states healthy General Exam Limitations: no limitations General appearance: alert, in no apparent distress Head exam: Present: atraumatic, normocephalic, normal inspection Eye exam: Present: normal appearance, PERRL, EOMI. Absent: scleral icterus, conjunctival injection, periorbital swelling ENT exam: Present: normal exam, mucous membranes moist Neck exam: Present: normal inspection. Absent: tenderness, meningismus, lymphadenopathy Respiratory exam: Present: normal lung sounds bilaterally. Absent: respiratory distress, wheezes, rales, rhonchi, stridor Cardiovascular Exam: Present: regular rate, normal rhythm, normal heart sounds. Absent: systolic murmur, diastolic murmur, rubs, gallop, clicks GI/Abdominal exam: Present: soft, normal bowel sounds. Absent: distended, tenderness, guarding, rebound, rigid Extremities exam: Present: normal inspection, full ROM, normal capillary refill. Absent: tenderness, pedal edema, joint swelling, calf tenderness Back exam: Present: normal inspection Neurological exam: Present: alert, oriented X3, CN II-XII intact Psychiatric exam: Present: normal affect, normal mood Skin exam: Present: warm, dry, intact, normal color. 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 Patient be admitted for cardiac observation anticoagulation. Patient had stent placed one year ago( Critical Care Time Critical Care Time: Yes Total Critical Care Time: 31 Disposition Clinical Impression: Chest pain, Unstable angina Disposition: ADMITTED IP TO THIS HOSP Condition: Undetermined Instructions (If sedation given, give patient instructions): Chest Pain (ED) Is patient prescribed a controlled substance at d/c from ED?: No Referrals: Shay Santillan MD [Primary Care Provider] - 1-2 days
[2019-03-28 13:29] LABS: Basophils % (A) 1 %; Eosinophils # (A) 0.2 k/uL (0-0.7); Eosinophils % (A) 3 %; HCT 45.4 % (39.0-53.0); HGB 15.3 gm/dL (13.0-17.5); Lymphocytes # (A) 1.2 k/uL (1.0-4.8); Lymphocytes % (A) 20 %; MCHC 33.7 g/dL (31.0-37.0); MCV 91.9 fL (80.0-100.0); Mean Platelet Volume 6.1; Monocytes # (A) 0.5 k/uL (0-1.0); Monocytes % (A) 8 %; Neutrophils % (A) 66 %; Platelet Count 274 k/uL (150-450); RBC 4.94 m/uL (4.30-5.90)
--- NOTE | 2019-03-28 13:32 | XR ---
EXAMINATION TYPE: XR chest 2V DATE OF EXAM: 03/28/2019 COMPARISON: None INDICATION: Chest pain TECHNIQUE: Frontal and lateral views of the chest are obtained. FINDINGS: The heart size is normal. The pulmonary vasculature is normal. The lungs are clear. IMPRESSION: 1. No acute pulmonary process.
[2019-03-28 13:39] LABS: ALT 35 U/L (21-72); AST 32 U/L (17-59); African American GFR (CKD) >90 (>60 ml/min/1.73 sqM); Albumin 4.1 g/dL (3.5-5.0); Alkaline Phosphatase 80 U/L (38-126); Anion Gap 10 mmol/L; Blood Urea Nitrogen 26 mg/dL (9-20); Carbon Dioxide 22 mmol/L (22-30); Chloride 104 mmol/L (98-107); Glucose 109 mg/dL (74-99); INR 0.9 (<1.2); Magnesium 2.1 mg/dL (1.6-2.3); Partial Thromboplastin Time 24.1 sec (22.0-30.0); Potassium 4.7 mmol/L (3.5-5.1); Prothrombin Time 10.2 sec (9.0-12.0); Sodium 136 mmol/L (137-145); Total Bilirubin 0.5 mg/dL (0.2-1.3)
[2019-03-28] MEDS ORDERED: ASPIRIN 81 MG PO STA (14:31)
[2019-03-28] MEDS ORDERED: NITROGLYCERIN SL TABS 0.4 MG TAB SUBLINGUAL PRN (14:31)
[2019-03-28] MEDS ORDERED: HEPARIN SODIUM,PORCINE 5,000 UNIT/ML 1 ML VIAL IV PRN (14:31)
[2019-03-28] MEDS ORDERED: HEPARIN SODIUM,PORCINE 5,000 UNIT/ML 1 ML VIAL IV ONE (14:31)
[2019-03-28] MEDS ORDERED: HEPARIN SOD,PORK IN 0.45% NACL 25,000 UNIT in 0.45% NACL 1 250ML.BAG IV SCH (14:45)
[2019-03-28 17:47] VITALS: RESP 18
[2019-03-28 18:09] VITALS: BMI 24.7
[2019-03-28] MEDS ORDERED: METOPROLOL TARTRATE 25 MG TAB PO SCH (21:00)
--- NOTE | 2019-03-28 21:48 | HP ---
HISTORY AND PHYSICAL CHIEF COMPLAINT: This is a 69-year-old white male who came to the ER for chest pain. He was digging a post hole with a shovel and taking dirt out of a big hole and he got some substernal chest pressure/pain that he states was worse when he took a deep breath or moved his arm, but not all the time. He is a diabetic and has been taking for that and lisinopril low dose for renal protection. had a recent chest x-ray. He came to the hospital due to worsening of this chest pain. He took apparently a nitroglycerin which took the pain away. Apparently he has a history of stent placement about a year ago. He is admitted to rule out myocardial infarction. So far negative troponins x2. HOME MEDICATIONS: 1. Multiple vitamins. 2. Lipitor 40 mg daily. 3. Jardiance 10 mg daily. 4. Lopressor 12.5 b.i.d. 5. Atorvastatin 40 mg daily. ALLERGIES: GLIMEPIRIDE. REVIEW OF SYSTEMS: Fourteen-point review of systems negative except for mentioned in HPI. EKG sinus rhythm. PAST MEDICAL HISTORY: 1. Diabetes mellitus. 2. GERD. 3. Myocardial infarction. 4. Sleep apnea with CPAP, BiPAP. 5. History of neuropathy. 6. Heart catheterization with stent. 7. Hernia repair x2. FAMILY HISTORY: Mother with CVA and TIA. Passed at age 76. Father healthy. PHYSICAL EXAMINATION: Temperature 97.9, pulse 70 to 71, respiratory rate 18 to 22, pulse 50s to 60s, blood pressure 106/75, oxygen saturation 99% on room air. CARDIOVASCULAR: S1, S2. LUNGS: Transmitted upper sounds. GI: Soft. HEMATOLOGY: Negative Homans. MUSCULOSKELETAL: Some mild tenderness with palpation in the sternal area. VASCULAR: Normal dorsalis pedis, posterior tibial, radial pulse. OPHTHALMOLOGIC: Pupils equal, round, reactive to light and accommodation. ASSESSMENT: 1. Possible unstable angina. 2. Atypical chest pain. 3. Diabetes mellitus. 4. Suspect some costochondritis. So far troponins are negative. Do a D-dimer. Chest x-ray is normal. Wait for Cardiology to clear. Possible stress test will be needed. MMODL / IJN: [id number] /
[2019-03-29 03:53] LABS: Mean Platelet Volume 6.4; Platelet Count 230 k/uL (150-450)
[2019-03-29 04:06] LABS: Cholesterol 149 mg/dL (<200); HDL Cholesterol 61 mg/dL (40-60); LDL Cholesterol,Calculated 51 mg/dL (0-99); Triglycerides 186 mg/dL (<150)
[2019-03-29] MEDS ORDERED: MAGNESIUM OXIDE 400 MG TAB PO SCH (09:00)
[2019-03-29] MEDS ORDERED: ASPIRIN 81 MG PO SCH (09:00)
[2019-03-29] MEDS ORDERED: METOPROLOL TARTRATE 12.5 MG TAB PO SCH (09:00)
[2019-03-29] MEDS ORDERED: ASPIRIN 325 MG TAB PO SCH (09:00)
[2019-03-29] MEDS ORDERED: LISINOPRIL 2.5 MG TAB PO SCH (09:00)
[2019-03-29 09:37] LABS: Glucose,Whole Blood 65 mg/dL (75-99)
[2019-03-29] MEDS ORDERED: RX INFO: IV CONTRAST WAS GIVEN 1 EACH MISC MISCELLANE PRN (10:37)
[2019-03-29] MEDS ORDERED: DOBUTamine DRIP for NUC MED 500 MG in DEXTROSE/WATER 1 250ML.BAG IV ONE (11:25)
--- NOTE | 2019-03-29 11:28 | ECHOF ---
Referral Reason:cp MEASUREMENTS -------- HEIGHT: 182.9 cm WEIGHT: 78.0 kg BP: 120/60 RVIDd: 2.6 cm (< 3.3) IVSd: 1.2 cm (0.6 - 1.1) LVIDd: 3.8 cm (3.9 - 5.3) LVPWd: 1.1 cm (0.6 - 1.1) IVSs: 1.5 cm LVIDs: 2.9 cm LVPWs: 1.3 cm LA Diam: 3.3 cm (2.7 - 3.8) Ao Diam: 3.6 cm (2.0 - 3.7) AV Cusp: 1.5 cm (1.5 - 2.6) LA Diam: 3.6 cm (2.7 - 3.8) MV EXCURSION: 17.701 mm (> 18.000) MV EF SLOPE: 100 mm/s (70 - 150) EPSS: 0.8 cm MV E Atul: 0.58 m/s MV DecT: 227 ms MV A Atul: 0.67 m/s MV E/A Ratio: 0.86 RAP: 5.00 mmHg RVSP: 10.90 mmHg FINDINGS -------- Sinus rhythm. This was a technically good study. The left ventricular size is normal. There is mild concentric left ventricular hypertrophy. Overa ll left ventricular systolic function is normal with, an EF between 55 - 60 %. The right ventricle is normal in size. The left atrial size is normal. The right atrial size is normal. Aortic Root is dilated and measures 4.0cm. Mild mitral annular calcification present. Mild mitral regurgitation is present. Mild tricuspid regurgitation present. Right ventricular systolic pressure is normal at < 35 mmHg. There is no evidence of pulmonary hypertension. There is no pulmonic regurgitation present. The aortic root size is normal. There is no pericardial effusion. CONCLUSIONS -------- 1. Sinus rhythm. 2. This was a technically good study. 3. The left ventricular size is normal. 4. There is mild concentric left ventricular hypertrophy. 5. Overall left ventricular systolic function is normal with, an EF between 55 - 60 %. 6. The right ventricle is normal in size. 7. The left atrial size is normal. 8. The right atrial size is normal. 9. Aortic Root is dilated and measures 4.0cm. 10. Mild mitral annular calcification present. 11. Mild mitral regurgitation is present. 12. Mild tricuspid regurgitation present. 13. Right ventricular systolic pressure is normal at < 35 mmHg. 14. There is no evidence of pulmonary hypertension. 15. There is no pulmonic regurgitation present. 16. The aortic root size is normal. 17. There is no pericardial effusion. HIGH WIRE ARTIST: Catie Wall RDCS
[2019-03-29 12:29] LABS: Glucose,Whole Blood 79 mg/dL (75-99)
--- NOTE | 2019-03-29 12:58 | ECHOS ---
STRESS ECHOCARDIOGRAM DOBUTAMINE ECHO INDICATIONS: Chest pain. MEDICATIONS: BASELINE HEART RATE: 71 BASELINE BLOOD PRESSURE: 97/47 MAXIMUM HEART RATE: 131 MAXIMUM BLOOD PRESSURE: 140/64 85% MPHR: 128 100% MPHR: 151 METS: MAXIMUM STAGE REACHED: TOTAL EXERCISE TIME: CLINICAL INFORMATION: Baseline EKG shows sinus rhythm, normal axis, normal intervals. Patient initially exercised on Vinnie protocol, but could not attain target heart rate hence we converted it to a dobutamine echo. Baseline EKG shows sinus rhythm, normal axis, normal intervals. The patient was given intravenous dobutamine as per protocol, attained 87% of predicted maximal heart rate without chest pain or diagnostic ST-segment depression. Baseline echo shows normal left ventricular size, wall motion and systolic function. Post dobutamine infusion, there is normal hyperdynamic response of all segments of myocardium noted. CONCLUSIONS: 1. Negative stress test by EKG criteria. 2. Negative dobutamine echo. MMODL / IJN: [id number] /
--- NOTE | 2019-03-29 13:08 | P.CRDCN ---
History of Present Illness History of present illness: This is a pleasant 69-year-old male past medical history significant for coronary artery disease in the setting of an acute non-ST elevated myocardial infarction status post stent placement, diabetes mellitus, hypertension, aneurysmal aortic root 4.1 cm and dyslipidemia. We've been asked to see him in consultation secondary to chest discomfort. He follows in the office with Dr. Lott. He is seen and examined resting comfortably in bed. He states yesterday he was digging some concrete posts out of the ground and he started having a tightness in the chest in the midsternal region associated with shortness of breath. There was no radiation to the arm, back, neck or jaw. The tightness in his chest lasted for approximately one hour with no specific alleviating factor. He took 2 sublingual nitroglycerin at home did not achieve relief of this pain. Upon arrival to the emergency department he was continuing to have ongoing chest discomfort. EKG reveals sinus mechanism with no acute ST or T wave abnormalities noted. Chest x-ray is negative for an acute cardiopulmonary process. Laboratory data reviewed, CBC unremarkable, d-dimer 0.32, sodium 136, potassium 4.7, creatinine 0.75, magnesium 2.1, cardiac enzymes negative 3, lipase 379, proBNP 54 and LDL 51. Current cardiac medications include aspirin 81 mg daily, atorvastatin 40 mg daily, lisinopril 2.5 mg daily, Lopressor 12.5 mg twice a day darius Brilinta 90 mg twice a day. At the time of my exam: CONSTITUTIONAL: Denies fever. Denies chills. EYES: Denies blurred vision. Denies vision changes. Denies eye pain. EARS, NOSE, MOUTH & THROAT: Denies headache. Denies sore throat. Denies ear pain. CARDIOVASCULAR: Denies chest pain. Denies shortness of breath. Denies orthopnea. Denies PND. Denies palpitations. RESPIRATORY: Denies cough. GASTROINTESTINAL: Denies abdominal pain. Denies diarrhea. Denies constipation. Denies nausea. Denies vomiting. MUSCULOSKELETAL: Denies myalgias. INTEGUMENTARY: Denies pruitis. Denies rash. NEUROLOGIC: Denies numbness. Denies tingling. Denies weakness. PSYCHIATRIC: Denies anxiety. Denies depression. ENDOCRINE: Denies fatigue. Denies weight change. Denies polydipsia. Denies polyurina. GENITOURINARY: Denies burning, hematuria or urgency with micturation. HEMATOLOGIC: Denies history of anemia. Denies bleeding. Blood pressure 109/68 heart rate 77 afebrile maintaining oxygen saturation on room air GENERAL: This is a 69-year-old male in no apparent distress at the time of my examination. HEENT: Head is atraumatic, normocephalic. Pupils are equal, round. Sclerae anicteric. Conjunctivae are clear. Mucous membranes of the mouth are moist. Neck is supple. There is no jugular venous distention. No carotid bruit is heard. LUNGS: Clear to auscultation no wheezes, rales or rhonchi. No chest wall tenderness is noted on palpation or with deep breathing. HEART: Regular rate and rhythm without murmurs, rubs or gallops. S1 and S2 heard. ABDOMEN: Soft, nontender. Bowel sounds are heard. No organomegaly noted. EXTREMITIES: No evidence of peripheral edema and no calf tenderness noted. VASCULAR: Radial and dorsalis pedis pulses palpated, no evidence of clubbing. NEUROLOGIC: Patient is awake, alert and oriented x3. ASSESSMENT Precordial chest pain. An acute coronary event has been ruled out. Elevated lipase History of coronary artery disease in the setting of a non-ST elevated myocardial infarction status post stent placement to the Hypertension Dyslipidemia Diabetes mellitus History of aneurysmal aortic arch PLAN An acute coronary event has been ruled out. Obtain 2-D echocardiogram and Doppler study to assess cardiac structure and function. Perform dobutamine stress echocardiogram to assess for stress-induced ischemia. Obtain CTA chest assess aorta. Diagnostic testing is normal and he continues to remain chest pain-free he may be discharged from a cardiac perspective. Follow-up with Dr. Lott in one to 2 weeks. Thank you kindly for this consultation. Nurse Practitioner note has been reviewed, I agree with a documented findings and plan of care. Patient was seen and examined. 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 Last Myocardial Infarction Date:: june 2018 History of Any Multi-Drug Resistant Organisms: None Reported Past Surgical History: No Surgical Hx Reported, Heart Catheterization With Stent, Hernia Repair Additional Past Surgical History / Comment(s): 3 hernia repair - marshall inguinal, umbilical hernia repair Past Anesthesia/Blood Transfusion Reactions: No Reported Reaction Date of Last Stent Placement:: Past Psychological History: No Psychological Hx Reported Smoking Status: Former smoker Past Alcohol Use History: Daily Past Drug Use History: None Reported - Past Family History Mother Family Medical History: CVA/TIA Additional Family Medical History / Comment(s): passed at 76 Father Additional Family Medical History / Comment(s): prostate cancer Medications and Allergies Home Medications Medication Instructions Recorded Confirmed Type Curcumin 1 tab PO DAILY 06/21/18 03/28/19 History Ubidecarenone [Co Q-10] 100 mg PO DAILY 06/21/18 03/28/19 History Vitamin E 1,000 unit PO DAILY 06/21/18 03/28/19 History Aspirin 81 mg PO DAILY chew 06/23/18 03/28/19 Rx Lisinopril [Zestril] 2.5 mg PO DAILY tab 06/23/18 03/28/19 Rx Nitroglycerin Sl Tabs [Nitrostat] 0.4 mg SUBLINGUAL Q5M PRN tab 06/23/18 03/28/19 Rx Ticagrelor [Brilinta] 90 mg PO BID tab 06/23/18 03/28/19 Rx Ashwagandha 1 tab PO DAILY 03/28/19 03/28/19 History Atorvastatin [Lipitor] 40 mg PO HS 03/28/19 03/28/19 History Cholecalciferol (Vitamin D3) 2,000 unit PO DAILY 03/28/19 03/28/19 History [Vitamin D3] Empagliflozin [Jardiance] 10 mg PO DAILY 03/28/19 03/28/19 History Empagliflozin [Jardiance] 10 mg PO DAILY 03/28/19 03/28/19 History Kelp 1 tab PO DAILY 03/28/19 03/28/19 History Magnesium Oxide 400 mg PO DAILY 03/28/19 03/28/19 History Metoprolol Tartrate [Lopressor] 12.5 mg PO BID 03/28/19 03/28/19 History Vitamin B Complex 1 cap PO DAILY 03/28/19 03/28/19 History Vitamin K-2 100mg 1 tab PO DAILY 03/28/19 03/28/19 History Allergies Allergy/AdvReac Type Severity Reaction Status Date / Time glimepiride Allergy Unknown Verified 03/28/19 13:23 Physical Exam Vitals: Vital Signs Temp Pulse Pulse Pulse Resp BP BP 03/29/19 07:00 97.5 F L 57 L 18 03/29/19 04:00 97.9 F 65 18 106/61 03/29/19 03:57 61 18 03/28/19 23:52 61 18 03/28/19 23:43 97.6 F 61 18 106/66 03/28/19 20:00 70 18 03/28/19 19:21 98.1 F 70 18 112/65 03/28/19 17:46 98.2 F 66 18 110/68 03/28/19 17:00 60 21 104/70 03/28/19 16:00 61 14 115/65 03/28/19 15:00 61 15 118/68 03/28/19 14:00 62 14 102/75 03/28/19 13:00 64 16 106/75 03/28/19 12:53 63 03/28/19 12:52 97.9 F 71 20 106/75 03/28/19 12:50 75 17 106/75 BP Pulse Ox 03/29/19 07:00 96/58 96 03/29/19 04:00 94 L 03/29/19 03:57 03/28/19 23:52 03/28/19 23:43 98 03/28/19 20:00 03/28/19 19:21 96 03/28/19 17:46 97 03/28/19 17:00 98 03/28/19 16:00 97 03/28/19 15:00 96 03/28/19 14:00 95 03/28/19 13:00 94 L 03/28/19 12:53 03/28/19 12:52 99 03/28/19 12:50 94 L Intake and Output 03/28/19 03/29/19 03/29/19 22:59 06:59 14:59 Intake Total 263.662 Balance 263.662 Intake: Intake, IV Titration 63.662 Amount Heparin Sod,Pork in 0.45% 63.662 NaCl 25,000 unit In 0.45 % NaCl 1 250ml.bag @ 12 UNITS/KG/HR 9.362 mls/hr IV .Q24H [facility] Rx#: [id number] Oral 200 Other: # Voids 1 Results 03/29/19 03:37 03/28/19 13:04 Cardiac Enzymes 03/28/19 03/28/19 03/28/19 Range/Units 13:04 13:04 19:43 AST 32 (17-59) U/L Troponin I <0.012 <0.012 (0.000-0.034) ng/mL 03/29/19 Range/Units 01:25 AST (17-59) U/L Troponin I <0.012 (0.000-0.034) ng/mL Coagulation 03/28/19 03/28/19 03/29/19 Range/Units 13:04 21:01 03:37 PT 10.2 (9.0-12.0) sec APTT 24.1 76.9 H 50.0 H (22.0-30.0) sec Lipids 03/29/19 Range/Units 03:37 Triglycerides 186 H (<150) mg/dL Cholesterol 149 (<200) mg/dL HDL Cholesterol 61 H (40-60) mg/dL CBC 03/28/19 03/29/19 Range/Units 13:04 03:37 WBC 6.0 (3.8-10.6) k/uL RBC 4.94 (4.30-5.90) m/uL Hgb 15.3 (13.0-17.5) gm/dL Hct 45.4 (39.0-53.0) % Plt Count 274 230 (150-450) k/uL Comprehensive Metabolic Panel 03/28/19 Range/Units 13:04 Sodium 136 L (137-145) mmol/L Potassium 4.7 (3.5-5.1) mmol/L Chloride 104 (98-107) mmol/L Carbon Dioxide 22 (22-30) mmol/L BUN 26 H (9-20) mg/dL Creatinine 0.75 (0.66-1.25) mg/dL Glucose 109 H (74-99) mg/dL Calcium 10.0 (8.4-10.2) mg/dL AST 32 (17-59) U/L ALT 35 (21-72) U/L Alkaline Phosphatase 80 (38-126) U/L Total Protein 7.0 (6.3-8.2) g/dL Albumin 4.1 (3.5-5.0) g/dL Current Medications Generic Name Dose Route Start Last Admin Trade Name Freq PRN Reason Stop Dose Admin Aspirin 81 mg 03/29/19 09:00 Aspirin PO DAILY [facility] Atorvastatin Calcium 40 mg 03/29/19 21:00 Lipitor PO HS [facility] Heparin Sodium (Porcine) 0 unit 03/28/19 14:31 Heparin IV Q6HR PRN Low PTT Protocol Lisinopril 2.5 mg 03/29/19 09:00 Zestril PO DAILY [facility] Magnesium Oxide 400 mg 03/29/19 09:00 Mag-Ox PO DAILY [facility] Metoprolol Tartrate 12.5 mg 03/29/19 09:00 Lopressor PO BID [facility] Nitroglycerin 0.4 mg 03/28/19 14:31 Nitrostat SUBLINGUAL Q5M PRN Chest Pain Intake and Output 03/28/19 03/29/19 03/29/19 22:59 06:59 14:59 Intake Total 263.662 Balance 263.662 Intake: Intake, IV Titration 63.662 Amount Heparin Sod,Pork in 0.45% 63.662 NaCl 25,000 unit In 0.45 % NaCl 1 250ml.bag @ 12 UNITS/KG/HR 9.362 mls/hr IV .Q24H [facility] Rx#: [id number] Oral 200 Other: # Voids 1 03/29/19 03:37 03/28/19 13:04
--- NOTE | 2019-03-29 13:21 | US ---
EXAMINATION TYPE: US gallbladder DATE OF EXAM: 03/29/2019 COMPARISON: NONE CLINICAL HISTORY: cp, elev lipase. EXAM MEASUREMENTS: Liver Length: 13.3 cm Gallbladder Wall: 0.1 cm CBD: 0.2 cm Right Kidney: 10.3 x 6.7 x 5.2 cm Severe overlying bowel. Pancreas: partially obscured by bowel gas, portions visualized wnl Liver: left lobe obscured by overlying bowel gas Gallbladder: large gallstones, obscuring neck of gallbladder Evidence for sonographic Victor's sign: no CBD: wnl Right Kidney: wnl IMPRESSION: 1. Cholelithiasis.
--- NOTE | 2019-03-29 13:25 | CT ---
EXAMINATION TYPE: CT angio chest DATE OF EXAM: 03/29/2019 COMPARISON: CTA chest June 21, 2018 HISTORY: Chest pain rule out pulmonary embolism CT DLP: 486 mGycm. Automated Exposure Control for Dose Reduction was Utilized. CONTRAST: CTA scan of the thorax is performed with IV Contrast, patient injected with 100 mL of Isovue 370, pul monary embolism protocol. MIP Images are created on CT scanner and reviewed. FINDINGS: LUNGS: The lungs are grossly clear, there is no concerning parenchymal mass or nodule identified. T here is no pleural effusion or pneumothorax seen. The tracheobronchial tree is patent. MEDIASTINUM: There is satisfactory enhancement of the pulmonary artery and its branches, there is no CT evidence for pulmonary embolism. There are no greater than 1 cm hilar or mediastinal lymph nodes. Stable trace pericardial effusion is seen anterior-inferior aspect near axial image 78. 4 vessel siomara gin from aortic arch which is normal variant. No cardiomegaly. OTHER: Stable small fixed hiatal hernia. Dependent calcified gallstones redemonstrated. Partial visua lization of suspected duodenal diverticulum axial image 119 noted. Multilevel spurring in thoracic sp ine redemonstrated. IMPRESSION: No CT evidence for acute pulmonary embolism. No suspicious acute pulmonary process
[2019-03-29 15:36] LABS: Albumin 3.6 g/dL (3.5-5.0); Bilirubin, Delta 0.1 mg/dL (0.0-0.2); Bilirubin,Unconjugated 0.3 mg/dL (0.0-1.1); Total Bilirubin 0.4 mg/dL (0.2-1.3); Total Protein 6.4 g/dL (6.3-8.2)
[2019-03-29 16:03] VITALS: BP 106/65; PULSE 58; TEMP 97.6
[2019-03-29 16:51] LABS: Glucose,Whole Blood 82 mg/dL (75-99)
--- NOTE | 2019-03-29 18:35 | P.GSCN ---
History of Present Illness Consult date: 03/29/19 Reason for Consult: Gallstones History of present illness: 69-year-old male comes in the ER with complaints of retrosternal chest pain. States the pain felt like pressure and related to heavy lifting at home. No radiation. No abdominal discomfort. No nausea or vomiting. Patient states he was told last year he had gallstones. Ultrasound showed gallstones as well. Liver enzymes normal. Lipase slightly elevated. No change in the color of his skin urine or stools. No amylase level was checked. Cardiology has seen this patient and cleared for discharge. 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 Last Myocardial Infarction Date:: june 2018 History of Any Multi-Drug Resistant Organisms: None Reported Past Surgical History: No Surgical Hx Reported, Heart Catheterization With Stent, Hernia Repair Additional Past Surgical History / Comment(s): 3 hernia repair - marshall inguinal, umbilical hernia repair Past Anesthesia/Blood Transfusion Reactions: No Reported Reaction Date of Last Stent Placement:: Past Psychological History: No Psychological Hx Reported Smoking Status: Former smoker Past Alcohol Use History: Daily Past Drug Use History: None Reported - Past Family History Mother Family Medical History: CVA/TIA Additional Family Medical History / Comment(s): passed at 76 Father Additional Family Medical History / Comment(s): prostate cancer Medications and Allergies Home Medications Medication Instructions Recorded Confirmed Type Curcumin 1 tab PO DAILY 06/21/18 03/28/19 History Ubidecarenone [Co Q-10] 100 mg PO DAILY 06/21/18 03/28/19 History Vitamin E 1,000 unit PO DAILY 06/21/18 03/28/19 History Aspirin 81 mg PO DAILY chew 06/23/18 03/28/19 Rx Lisinopril [Zestril] 2.5 mg PO DAILY tab 06/23/18 03/28/19 Rx Nitroglycerin Sl Tabs [Nitrostat] 0.4 mg SUBLINGUAL Q5M PRN tab 06/23/18/08/26 Rx Ticagrelor [Brilinta] 90 mg PO BID tab 06/23/18 03/28/19 Rx Ashwagandha 1 tab PO DAILY 03/28/19 03/28/19 History Atorvastatin [Lipitor] 40 mg PO HS 03/28/19 03/28/19 History Cholecalciferol (Vitamin D3) 2,000 unit PO DAILY 03/28/19 03/28/19 History [Vitamin D3] Kelp 1 tab PO DAILY 03/28/19 03/28/19 History Magnesium Oxide 400 mg PO DAILY 03/28/19 03/28/19 History Metoprolol Tartrate [Lopressor] 12.5 mg PO BID 03/28/19 03/28/19 History Vitamin B Complex 1 cap PO DAILY 03/28/19 03/28/19 History Vitamin K-2 100mg 1 tab PO DAILY 03/28/19 03/28/19 History Allergies Allergy/AdvReac Type Severity Reaction Status Date / Time glimepiride Allergy Unknown Verified 03/28/19 13:23 Surgical - Exam Vital Signs Pulse Resp BP Pulse Ox 75 17 106/75 94 L 03/28/19 12:50 03/28/19 12:50 03/28/19 12:50 03/28/19 12:50 Physical exam: General: Well-developed, well-nourished HEENT: Normocephalic, sclerae nonicteric Abdomen: Nontender, nondistended Extremities: No edema Neuro: Alert and oriented Results - Labs 03/29/19 03:37 03/28/19 13:04 Abnormal Lab Results - Last 24 Hours (Table) 03/28/19 03/29/19 03/29/19 Range/Units 21:01 03:37 03:37 APTT 76.9 H 50.0 H (22.0-30.0) sec POC Glucose (mg/dL) (75-99) mg/dL Triglycerides 186 H (<150) mg/dL HDL Cholesterol 61 H (40-60) mg/dL Lipase 379 H (23-300) U/L 03/29/19 03/29/19 03/29/19 Range/Units 09:03 09:34 16:13 APTT 48.9 H (22.0-30.0) sec POC Glucose (mg/dL) 65 L (75-99) mg/dL Triglycerides (<150) mg/dL HDL Cholesterol (40-60) mg/dL Lipase 338 H (23-300) U/L Diabetes panel 03/29/19 03/29/19 03/29/19 Range/Units 01:25 03:37 03:37 Hemoglobin A1c 6.0 (4.0-6.0) % AST 30 (17-59) U/L ALT 42 (21-72) U/L Alkaline Phosphatase 80 (38-126) U/L Total Protein 6.4 (6.3-8.2) g/dL Albumin 3.6 (3.5-5.0) g/dL Triglycerides 186 H (<150) mg/dL HDL Cholesterol 61 H (40-60) mg/dL Calcium panel 03/29/19 Range/Units 03:37 Albumin 3.6 (3.5-5.0) g/dL Adrenal panel 03/29/19 Range/Units 03:37 Total Bilirubin 0.4 (0.2-1.3) mg/dL AST 30 (17-59) U/L ALT 42 (21-72) U/L Alkaline Phosphatase 80 (38-126) U/L Total Protein 6.4 (6.3-8.2) g/dL Albumin 3.6 (3.5-5.0) g/dL Assessment and Plan (1) Gallstones Narrative/Plan: Options reviewed with the patient. Presentation could be related to biliary colic. Patient is not interested in cholecystectomy at this time. He states he is taking homeopathic methods to dissolve his gallstones. Symptoms related to gallbladder disease reviewed with him. He will contact me with any problems. Amylase level will be checked. Current Visit: Yes Status: Acute Code(s): K80.20 - CALCULUS OF GALLBLADDER W/O CHOLECYSTITIS W/O OBSTRUCTION SNOMED Code(s): 431139113
[2019-03-29] MEDS ORDERED: ATORVASTATIN 40 MG TAB PO SCH (21:00)
== END 2019-03-29 18:53 | disposition home or self-care (01) ==
LOC: EC 12:44 → 1SOBS 14:31
PROVIDERS: ADMIT Family Medicine; ATTEND Family Medicine
DX: R07.89 Other chest pain (principal); K80.20 Calculus of gallbladder without cholecystitis without obstruction; E11.42 Type 2 diabetes mellitus with diabetic polyneuropathy; I25.10 Atherosclerotic heart disease of native coronary artery without angina pectoris; I71.2 Thoracic aortic aneurysm, without rupture; I10 Essential (primary) hypertension; E78.5 Hyperlipidemia, unspecified; K21.9 Gastro-esophageal reflux disease without esophagitis; G47.30 Sleep apnea, unspecified; Z99.89 Dependence on other enabling machines and devices; R06.02 Shortness of breath; R00.2 Palpitations; R74.8 Abnormal levels of other serum enzymes; Z79.02 Long term (current) use of antithrombotics/antiplatelets; Z79.82 Long term (current) use of aspirin; Z79.84 Long term (current) use of oral hypoglycemic drugs; Z79.899 Other long term (current) drug therapy; Z88.8 Allergy status to other drugs, medicaments and biological substances; I25.2 Old myocardial infarction; Z95.5 Presence of coronary angioplasty implant and graft; Z87.891 Personal history of nicotine dependence; Z82.3 Family history of stroke; Z80.42 Family history of malignant neoplasm of prostate
CPT/HCPCS: 96366 ×3; 96376; 96365; 99291; 36415; 93005; 93306; 93351; 85379; 83880; 80061; 80053; 80076; 82150; 83690 ×2; 83735; 84484 ×2; 85025; 85049; 85610; 85730 ×2; 83036; 71046; 76705; 71275; G0378 ×2; J1250; J1644 ×2; Q9967

== ENCOUNTER 2019-06-14 07:35 | Day surgery (SDC) | payer MEDICARE, BC ==
[~2019-06-14 07:35] MED LIST: HYDROmorphone 0.5 MG/0.5 ML SYRINGE IVP PRN; LACTATED RINGERS 1,000 ML IV SCH; ONDANSETRON 4 MG/2 ML VIAL IVP PRN
[2019-06-14] MEDS ORDERED: LIDOCAINE 1% 20 ML VIAL (10MG/ML) FOR IV START INTRADERMA ONE (08:04)
[2019-06-14 08:10] VITALS: TEMP 97.3
[2019-06-14 08:15] LABS: Glucose,Whole Blood 92 mg/dL (75-99)
[2019-06-14] MEDS ORDERED: LIDOCAINE 1% INJ 10MG/ML (20 ML MDV) ONE (08:41)
[2019-06-14] MEDS ORDERED: PROPOFOL 10 MG/ML 20 ML VIAL IV ONE (08:41)
--- NOTE | 2019-06-14 08:47 | P.GSHP ---
History of Present Illness H&P Date: 06/14/19 Chief Complaint: Screening colonoscopy This a 69-year-old male who presents today for screening colonoscopy. Patient denies any significant GI complaints. Patient's had issues with gallstones. He's had attacks of pancreatitis. 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 PAST HX OF GERD. HIATAL HERNIA. GALLSTONES. Last Myocardial Infarction Date:: 06/22/18? History of Any Multi-Drug Resistant Organisms: None Reported Past Surgical History: Heart Catheterization With Stent, Hernia Repair Additional Past Surgical History / Comment(s): 3 hernia repair - marshall inguinal, umbilical hernia repair Past Anesthesia/Blood Transfusion Reactions: No Reported Reaction Date of Last Stent Placement:: 06/25/18 Past Psychological History: No Psychological Hx Reported Smoking Status: Former smoker Past Alcohol Use History: Daily Additional Past Alcohol Use History / Comment(s): QUIT SMOKING AT AG 28 YR. QUIT ALCOHOL MAY 2019. WAS DRINKING DAILYT. Past Drug Use History: None Reported - Past Family History Mother Family Medical History: CVA/TIA Additional Family Medical History / Comment(s): passed at 76 Father Additional Family Medical History / Comment(s): prostate cancer Medications and Allergies Home Medications Medication Instructions Recorded Confirmed Type Curcumin 1 tab PO DAILY 06/21/18 06/12/19 History Ubidecarenone [Co Q-10] 100 mg PO DAILY 06/21/18 06/12/19 History Vitamin E 1,000 unit PO DAILY 06/21/18 06/12/19 History Aspirin 81 mg PO DAILY chew 06/23/18 06/12/19 Rx Nitroglycerin Sl Tabs [Nitrostat] 0.4 mg SUBLINGUAL Q5M PRN tab 06/23/18 06/12/19 Rx Ticagrelor [Brilinta] 90 mg PO BID tab 06/23/18 06/12/19 Rx Ashwagandha 1 tab PO DAILY 03/28/19 06/12/19 History Atorvastatin [Lipitor] 40 mg PO HS 03/28/19 06/12/19 History Cholecalciferol (Vitamin D3) 2,000 unit PO DAILY 03/28/19 06/12/19 History [Vitamin D3] Kelp 1 tab PO DAILY 03/28/19 06/12/19 History Magnesium Oxide 400 mg PO DAILY 03/28/19 06/12/19 History Metoprolol Tartrate [Lopressor] 12.5 mg PO BID 03/28/19 06/12/19 History Vitamin B Complex 1 cap PO DAILY 03/28/19 06/12/19 History Vitamin K-2 100mg 1 tab PO DAILY 03/28/19 06/12/19 History Glucos Sul 2Kcl/MSM/Chond/C/Mn 1 tab PO DAILY 06/12/19 06/12/19 History [Glucosamine Chondroitin Cap] Lisinopril [Zestril] 2.5 mg PO QAM 06/12/19 06/12/19 History Sennosides [Senna] 1 tab PO DAILY 06/12/19 06/12/19 History Allergies Allergy/AdvReac Type Severity Reaction Status Date / Time glimepiride Allergy Unknown Verified 06/12/19 10:43 Surgical - Exam Vital Signs Temp Pulse Resp BP Pulse Ox 97.3 F L 52 L 18 115/71 100 06/14/19 07:59 06/14/19 07:59 06/14/19 07:59 06/14/19 07:59 06/14/19 07:59 - General well developed, well nourished, no distress - Eyes PERRL - ENT normal pinna - Neck no masses - Respiratory normal expansion - Cardiovascular Rhythm: regular - Abdomen Abdomen: soft, non tender Assessment and Plan Assessment: We'll perform screening colonoscopy
--- NOTE | 2019-06-14 09:02 | P.OP ---
Date of Procedure: 06/14/19 Preoperative Diagnosis: Screening colonoscopy Postoperative Diagnosis: Moderate to severe diverticulosis Procedure(s) Performed: Colonoscopy Anesthesia: MAC Surgeon: Augustus Burnett Pathology: none sent Condition: stable Disposition: PACU Description of Procedure: Patient's placed on the endoscopy table in the lateral position. He received IV sedation. Digital rectal exam was performed which revealed no abnormalities. The prostate was symmetric without nodules. The flexible colonoscope was then placed and anus and passed throughout the entire colon. The ileocecal valve was visualized. The cecum, ascending colon appeared normal. In the transverse colon was a few scattered diverticula. Scope summer back into the descending and sigmoid: There is extensive diverticular changes. There were significant diverticular changes seen of the sigmoid colon. There is no active diverticulitis. The scope was then brought back the rectum and this appeared normal. Scope withdrawn for patient.
[2019-06-14 09:05] VITALS: RESP 16
[2019-06-14 09:06] LABS: Glucose,Whole Blood 73 mg/dL (75-99)
[2019-06-14 09:21] VITALS: BP 104/62; PULSE 57
== END 2019-06-14 09:50 | disposition home or self-care (01) ==
LOC: ORWHC2ENDO 07:35
PROVIDERS: ATTEND Surgery
DX: Z12.11 Encounter for screening for malignant neoplasm of colon (principal); K57.30 Diverticulosis of large intestine without perforation or abscess without bleeding; I25.2 Old myocardial infarction; K21.9 Gastro-esophageal reflux disease without esophagitis; K44.9 Diaphragmatic hernia without obstruction or gangrene; Z79.82 Long term (current) use of aspirin; Z87.891 Personal history of nicotine dependence; E11.40 Type 2 diabetes mellitus with diabetic neuropathy, unspecified; G47.30 Sleep apnea, unspecified; Z99.89 Dependence on other enabling machines and devices; Z95.5 Presence of coronary angioplasty implant and graft; Z82.3 Family history of stroke; Z79.899 Other long term (current) drug therapy; Z88.8 Allergy status to other drugs, medicaments and biological substances; I25.10 Atherosclerotic heart disease of native coronary artery without angina pectoris
CPT/HCPCS: J2001; J2704; G0121

== ENCOUNTER → 2019-07-16 | Outpatient (CLI) | payer MEDICARE, BC ==
--- NOTE | 2019-07-16 15:09 | NM ---
EXAMINATION TYPE: NM hepatobiliary w EF DATE OF EXAM: 07/16/2019 COMPARISON: NONE HISTORY: Cholelithiasis. Abdominal pain. TECHNIQUE: After the intravenous administration of 5.1 mCi Tc 99m Mebrofenin hepatobiliary scintigrap hy is performed. Immediate images post injection. FINDINGS: There is satisfactory initial accumulation of tracer by the liver. The gallbladder is visualized wit hin 16 minutes. The small bowel activity is noted within 4 minutes. At one hour 8 ounces of oral en sure plus is given to mimic CCK and gallbladder ejection fraction is calculated at 92 %, elevated. T herefore there is no scintigraphic evidence of cystic or common bile duct obstruction to suggest acut e cholecystitis or gallbladder dyskinesia. IMPRESSION: Biliary hyperkinesia with elevated gallbladder ejection fraction of 92%.
== END | disposition home or self-care (01) ==
LOC: RADNMMAIN 12:26
PROVIDERS: ATTEND Family Medicine
DX: K83.8 Other specified diseases of biliary tract (principal); K80.10 Calculus of gallbladder with chronic cholecystitis without obstruction
CPT/HCPCS: 78226; A9537

== ENCOUNTER 2019-08-16 09:45 | Day surgery (SDC) | payer MEDICARE, BC ==
[2019-08-15 09:31] VITALS: BMI 24.8
[~2019-08-16 09:45] MED LIST changes: +DEXAMETHASONE SOD PHOSPHATE 10 MG/ML 1 ML VIAL IV ONE; -HYDROmorphone 0.5 MG/0.5 ML SYRINGE IVP PRN; +LIDOCAINE 1% 20 ML VIAL (10MG/ML) FOR IV START INTRADERMA PRN; +ONDANSETRON 4 MG/2 ML VIAL IVP ONE; -ONDANSETRON 4 MG/2 ML VIAL IVP PRN; +SCOPOLAMINE 1.5MG/72HR PATCH TRANSDERM ONE
--- NOTE | 2019-08-16 09:58 | P.GSHP ---
History of Present Illness H&P Date: 08/16/19 Chief Complaint: Right upper quadrant pain This a 69-year-old male who presents today for laparoscopic cholecystectomy. Patient went right quadrant pain. History HIDA scan shows abnormal HIDA ejection fraction consistent with biliary hypokinesis. Past Medical History Past Medical History: Coronary Artery Disease (CAD), Diabetes Mellitus, GERD/Reflux, Hearing Disorder / Deafness, Myocardial Infarction (MT), Renal Disease, Sleep Apnea/CPAP/BIPAP Additional Past Medical History / Comment(s): CPAP at home; neuropathy in feet, off DM Rx. Old hx GERD, hiatal hernia. Hx Pancreatitis, Diverticulosis, Gallst ones. Has rash on back, waistline, ? herpes. Varicose veins. Last Myocardial Infarction Date:: 06/22/18? History of Any Multi-Drug Resistant Organisms: None Reported Past Surgical History: Heart Catheterization With Stent, Hernia Repair Additional Past Surgical History / Comment(s): 3 hernia repair - marshall inguinal, umbilical hernia repair. Colonoscopy Past Anesthesia/Blood Transfusion Reactions: No Reported Reaction Date of Last Stent Placement:: 06/25/18 Smoking Status: Former smoker - Past Family History Mother Family Medical History: CVA/TIA Additional Family Medical History / Comment(s): passed at 76 Father Additional Family Medical History / Comment(s): prostate cancer Medications and Allergies Home Medications Medication Instructions Recorded Confirmed Type Curcumin 1 tab PO DAILY 06/21/18 08/15/19 History Ubidecarenone [Co Q-10] 100 mg PO DAILY 06/21/18 08/15/19 History Vitamin E 400 unit PO DAILY 06/21/18 08/15/19 History Aspirin 81 mg PO DAILY chew 06/23/18 08/15/19 Rx Nitroglycerin Sl Tabs [Nitrostat] 0.4 mg SUBLINGUAL Q5M PRN tab 06/23/18 08/15/19 Rx Ashwagandha 1 tab PO DAILY 03/28/19 08/15/19 History Atorvastatin [Lipitor] 40 mg PO HS 03/28/19 08/15/19 History Cholecalciferol (Vitamin D3) 2,000 unit PO DAILY 03/28/19 08/15/19 History [Vitamin D3] Kelp 1 tab PO DAILY 03/28/19 08/15/19 History Metoprolol Tartrate [Lopressor] 12.5 mg PO BID 03/28/19 08/15/19 History Vitamin B Complex 1 cap PO DAILY 03/28/19 08/15/19 History Vitamin K-2 100mg 1 tab PO DAILY 03/28/19 08/15/19 History Glucos Sul 2Kcl/MSM/Chond/C/Mn 1 tab PO DAILY 06/12/19 08/15/19 History [Glucosamine Chondroitin Cap] Lisinopril [Zestril] 2.5 mg PO QAM 06/12/19 08/15/19 History Magnesium Citrate 400 mg PO DAILY 08/15/19 08/15/19 History Psyllium Husk 100% [Metamucil 1 packet PO DAILY 08/15/19 08/15/19 History Packet] Super Enzyme 1 tab PO DAILY 08/15/19 History Allergies Allergy/AdvReac Type Severity Reaction Status Date / Time glimepiride Allergy Unknown Verified 08/15/19 08:59 Surgical - Exam - General well developed, well nourished, no distress - Eyes PERRL - ENT normal pinna - Neck no masses - Respiratory normal expansion - Cardiovascular Rhythm: regular - Abdomen Abdomen: soft, non tender Assessment and Plan Assessment: Right upper quadrant pain Chronic cholecystitis We'll perform laparoscopic cholecystectomy
[2019-08-16 10:11] LABS: Glucose,Whole Blood 97 mg/dL (75-99)
[2019-08-16] MEDS ORDERED: HEPARIN SODIUM,PORCINE 5,000 UNIT/ML 1 ML VIAL SQ ONE (10:12)
[2019-08-16] MEDS ORDERED: SUCCINYLCHOLINE CHLORIDE 100 MG/5 ML SYR IV ONE (10:21)
[2019-08-16] MEDS ORDERED: PROPOFOL 10 MG/ML 20 ML VIAL IV ONE (10:21)
[2019-08-16] MEDS ORDERED: MIDAZOLAM 2 MG/2 ML VIAL ONE (10:21)
[2019-08-16] MEDS ORDERED: LIDOCAINE 1% INJ 10MG/ML (20 ML MDV) ONE (10:21)
[2019-08-16] MEDS ORDERED: HYDROmorphone (PF) 1 MG/ML ONE (10:21)
[2019-08-16] MEDS ORDERED: ePHEDrine SULFATE/0.9% NACL/PF 50 MG/5 ML SYRINGE IV ONE (10:21)
[2019-08-16] MEDS ORDERED: fentaNYL (PF) 50 MCG/ML 2 ML AMP ONE (10:21)
[2019-08-16] MEDS ORDERED: ROCURONIUM BROMIDE 10 MG/ML 10 ML VIAL IV ONE (10:21)
[2019-08-16] MEDS ORDERED: KETOROLAC 30 MG/ML 1 ML VIAL ONE (10:21)
[2019-08-16] MEDS ORDERED: BUPIVACAIN-EPI 0.25%-1:200,000 30 ML VIAL SQ ONE (10:47)
--- NOTE | 2019-08-16 11:11 | P.OP ---
Date of Procedure: 08/16/19 Preoperative Diagnosis: Cholecystitis Postoperative Diagnosis: Cholecystitis Cholelithiasis Procedure(s) Performed: Laparoscopic cholecystectomy Anesthesia: BERNARDO Surgeon: Augustus Burnett Estimated Blood Loss (ml): 5 Pathology: other (Gallbladder) Condition: stable Disposition: PACU Description of Procedure: The patient was placed on the operating table. The patient received a general endotracheal tube anesthesia. The patients abdomen was prepped and draped in the usual sterile fashion. Through an infraumbilical stab incision, the fascia of the anterior abdominal wall was grasped with a pair of Kochers and then the Veress needle was placed in the peritoneal cavity. Position of the Veress needle was confirmed with positive drop test. The abdomen was then insufflated. After adequate insufflation, the 10 mm trocar was placed in the peritoneal cavity. Following this the laparoscope was placed in the peritoneal cavity. The patient was placed in the head-up, right side up position and then a 5 mm trocar was placed in the right lateral and right subcostal position under direct visualization. A 8 mm trocar was placed in the epigastric position. The gallbladder was grasped in the fundus and infundibulum. Traction on the gallbladder was placed in the lateral and the cephalad positions. The triangle of Calot was visualized.. The cystic duct was bluntly dissected until the union of the cystic duct and common bile duct was seen. A critical view of safety was achieved. The cystic duct was then divided and sealed with the Harmonic scissors. A PDS Endoloop was then placed throughout the cystic duct stump. The cystic artery divided and sealed with the Harmonic scissors. The gallbladder was then removed from the liver bed using Harmonic scissors. The gallbladder was then extracted through the epigastric port site. Operative field was checked for any bleeding spots and Harmonic scissors was used to coagulate the liver bed. The abdomen was irrigated. The trocars were removed. The skin was closed using interrupted 3-0 Vicryl suture. Dermabond dressing were applied. The patient tolerated the procedure well.
[2019-08-16 11:24] VITALS: TEMP 97.5
[2019-08-16] MEDS: HYDROmorphone 0.5 MG/0.5 ML SYRINGE IVP PRN ×2 (11:31→11:38)
[2019-08-16 11:33] VITALS: RESP 16
[2019-08-16 13:03] VITALS: BP 113/67; PULSE 55
== END 2019-08-16 13:15 | disposition home or self-care (01) ==
LOC: OR 09:45
PROVIDERS: ATTEND Surgery
DX: K80.12 Calculus of gallbladder with acute and chronic cholecystitis without obstruction (principal); K82.8 Other specified diseases of gallbladder; I25.2 Old myocardial infarction; I25.10 Atherosclerotic heart disease of native coronary artery without angina pectoris; K21.9 Gastro-esophageal reflux disease without esophagitis; G47.33 Obstructive sleep apnea (adult) (pediatric); H91.90 Unspecified hearing loss, unspecified ear; E11.40 Type 2 diabetes mellitus with diabetic neuropathy, unspecified; I83.90 Asymptomatic varicose veins of unspecified lower extremity; Z87.891 Personal history of nicotine dependence; Z99.89 Dependence on other enabling machines and devices; Z79.82 Long term (current) use of aspirin; Z79.899 Other long term (current) drug therapy; Z95.5 Presence of coronary angioplasty implant and graft; Z98.890 Other specified postprocedural states; Z88.8 Allergy status to other drugs, medicaments and biological substances; Z87.19 Personal history of other diseases of the digestive system; Z82.49 Family history of ischemic heart disease and other diseases of the circulatory system; Z80.42 Family history of malignant neoplasm of prostate
CPT/HCPCS: 88304; 47562; J2250; J1644; J1100; J0690; J2405; J2001; J3010; J1885; J1170 ×2; J0330; J2704